=== PATIENT | female | born 1975 | race Caucasian/White ===

== ENCOUNTER 2020-10-08 13:14 | Emergency (ER) | payer BC ==
[~2020-10-08] VITALS: Ht 157.5 cm; Wt 67.1 kg
[2020-10-08] MEDS ORDERED: CITALOPRAM HBR40 MG PO (13:47)
[2020-10-08] MEDS ORDERED: FUROSEMIDE80 MG (13:47)
[2020-10-08] MEDS ORDERED: DEXTROAMP-AMPHE20 MG PO (13:47)
[2020-10-08] MEDS ORDERED: KLOR-CON20 MEQ PO (13:47)
[2020-10-08] MEDS ORDERED: HYDROCHLOROTHIA50 MG (13:48)
[2020-10-08] MEDS ORDERED: PRILOSEC OTC20 MG PO (13:48)
[2020-10-08] MEDS ORDERED: LEVOTHYROXINE125 MCG (13:48)
[2020-10-08] MEDS ORDERED: VITAMIN D31250 MC1 PO (13:48)
[2020-10-08] MEDS ORDERED: ASPIRIN81 MG PO (13:48)
--- NOTE | 2020-10-08 16:08 | EKG ---
[facility] [address] [place], [place] [address] Signed Sinus rhythm with 1st degree AV block Possible Left atrial enlargement Incomplete right bundle branch block Left posterior fascicular block Abnormal ECG No previous ECGs available Confirmed by HUMBLE BRENNAN MD ([id number]) on 10/08/2020 4:08:22 PM Electronically Signed By: HUMBLE BRENNAN MD 10/08/20 1608 PATIENT NAME: RAMONACJGERTRDUIS Electrocardiogram DATE OF : 71 PHYSICIAN: HUMBLE BRENNAN MD REPORT #: [id number] REPORT IS CONFIDENTIAL AND NOT TO BE RELEASED WITHOUT AUTHORIZATION
== END 2020-10-08 23:05 | disposition home or self-care (01) ==
LOC: ED 13:14
DX: E87.6 Hypokalemia (principal); Z79.899 Other long term (current) drug therapy; Z79.82 Long term (current) use of aspirin
CPT/HCPCS: 36415; 80048; 83735; 84132; 84484; 85025; 93005; 93010; 96365; 96366; 96367; 99285-25; J3475; J3480

== ENCOUNTER 2020-10-18 19:12 | Emergency (ER) | payer BC ==
[~2020-10-18] VITALS: Ht 157.5 cm; Wt 66.2 kg
[~2020-10-18 19:12] MED LIST: ASPIRIN81 MG PO; CITALOPRAM HBR40 MG PO; DEXTROAMP-AMPHE20 MG PO; FUROSEMIDE80 MG; HYDROCHLOROTHIA50 MG; KLOR-CON20 MEQ PO; LEVOTHYROXINE125 MCG; PRILOSEC OTC20 MG PO; VITAMIN D31250 MC1 PO
--- OUTSIDE RECORDS SUMMARY | 2020-10-18 19:14 | XMS ---
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 Luciano has no Care Guidelines for this patient. Rob [facility] (12 MO.) [facility] NOTE: Visits indicate total known visits. ED/C VISIT TRACKING (12 MO.) [facility]2020 19[facility] COMPLAINT: - LOW POTASSIUM 10/08/2020 13:16 [facility] TYPE: Emergency COMPLAINT: - REFER BY DR JEANNETTE VALERIO DIAGNOSES: - Hypokalemia - Other terminologist (current) drug therapy - [facility] (current) use of aspirin INPATIENT VISIT TRACKING (12 MO.) No inpatient visits to display in this time frame [email or web address]
[2020-10-18] MEDS ORDERED: ADDERALL 20 MG20 MG PO (19:35)
[2020-10-18] MEDS ORDERED: SLOW-MAG71.5 MG PO (19:36)
== END 2020-10-19 02:47 | disposition home or self-care (01) ==
LOC: ED 19:12
DX: E87.6 Hypokalemia (principal); M32.9 Systemic lupus erythematosus, unspecified; I25.2 Old myocardial infarction; I11.0 Hypertensive heart disease with heart failure; I50.9 Heart failure, unspecified; E03.9 Hypothyroidism, unspecified; F17.200 Nicotine dependence, unspecified, uncomplicated; Z79.899 Other long term (current) drug therapy; Z79.82 Long term (current) use of aspirin
CPT/HCPCS: 80048; 83735; 84132; 96365; 96366; 96367; 99284-25; J3475; J3480